=== PATIENT | female | born 1940 | race Caucasian/White ===

== ENCOUNTER → 2017-11-04 | Outpatient (CLI) | payer SELFPAY ==
[~2017-11-04] MED LIST: ACET-24 PO; ASPI-391 PO; ASPI-461 PO; ATV/1 PO; CALC-354 PO; CLR10 PO; GINK60TA2 PO; GLUCTAB18 PO; MULT-506 PO; NAPR1TAB9 PO; PRM625 PO; PROB1CAP41; PSEU120T21 PO; ULT50X PO; VALA500T60 PO
== END | disposition home or self-care (01) ==
LOC: C.LAB 07:35
PROVIDERS: ATTEND Family Medicine

== ENCOUNTER → 2017-11-09 | Outpatient (CLI) | payer OTHER ==
--- NOTE | 2017-11-09 13:24 | DIAGNOSTIC IMAGING REPORT ---
R VENOUS DOPP LOWER EXT UNILAT HISTORY: 77 years-old Female RIGHT LEG PAIN acute pain and swelling of the right leg COMPARISON: Right knee radiographs 09/04/2017 TECHNIQUE: Multiple real-time sonographic images of the right lower extremity deep venous structures were obtained assessing grayscale appearance, color and spectral flow FINDINGS: There is normal flow, compressibility, phasicity and augmentation of the right lower extremity deep venous structures. Mildly complex cyst, 2.2 x 6.1 x 2.0 cm. IMPRESSION: No sonographic evidence of deep venous thrombosis. The above report was generated using voice recognition software. It may contain grammatical, syntax or spelling errors. Electronically signed by: Gen Lin M.D. 11/09/2017 1:22 PM Dictated Date/Time: 11/09/2017 1:19 PM
== END | disposition home or self-care (01) ==
LOC: C.ULTRBC 12:56
PROVIDERS: ATTEND Orthopaedic Surgery Sports Medicine
DX: M79.661 Pain in right lower leg (principal); Z96.651 Presence of right artificial knee joint

== ENCOUNTER 2019-05-04 08:47 | Observation (INO) ==
--- NOTE | 2019-04-01 15:35 | PAT Medication Instructions ---
Medication Instructions Date of Service April 01, 2019 Home Medications aspirin 81 mg PO DAILY PRN 03/04/18 [History Confirmed 03/28/19] rkxetox-jyputrhmlddkq-pskzzcya [Excedrin Extra Strength] 1 tab PO Q6H PRN conjugated estrogens [Premarin] 0.625 mg PO Q2D 03/04/18 [History Confirmed 03/28/19] glutamine [L-Glutamine] 500 mg PO QPM 03/04/18 [History Confirmed 03/28/19] lactobacillus combination no.4 [Probiotic] 1 dose PO QPM 03/04/18 [History Confirmed 03/28/19] lorazepam [Ativan] 0.5 mg PO HS 03/04/18 [History Confirmed 03/28/19] multivitamin 1 tab PO BID 03/04/18 [History Confirmed 03/28/19] naproxen sodium 220 mg PO BID 03/04/18 [History Confirmed 03/28/19] pseudoephedrine-guaifenesin [Mucinex D] 1 tab PO QAM 03/04/18 [History Confirmed 03/28/19] valacyclovir [Valtrex] 1 - 3 tab PO DAILY PRN 03/04/18 [History Confirmed 03/28/19] ascorbic acid (vitamin C) [Vitamin C] 500 mg PO DAILY PRN 03/28/19 [History Confirmed 03/28/19] magnesium oxide 500 mg PO QPM 03/28/19 [History Confirmed 03/28/19] Continue as directed valacyclovir [Valtrex] 1 - 3 tab PO DAILY PRN (if needed) ASK your surgeon for instructions fkxuctq-vesxmsbkmwqpy-ktnozhdu [Excedrin Extra Strength] 1 tab PO Q6H PRN naproxen sodium 220 mg PO BID 03/04/18 [History Confirmed 03/28/19] aspirin 81 mg PO DAILY PRN 03/04/18 [History Confirmed 03/28/19] conjugated estrogens [Premarin] 0.625 mg PO Q2D 03/04/18 [History Confirmed 03/28/19] STOP taking 2 weeks before surgery (or as soon as possible if surgery is within 2 weeks) glutamine [L-Glutamine] 500 mg PO QPM 03/04/18 [History Confirmed 03/28/19] DO NOT take the morning of surgery multivitamin 1 tab PO BID 03/04/18 [History Confirmed 03/28/19] pseudoephedrine-guaifenesin [Mucinex D] 1 tab PO QAM 03/04/18 [History Confirmed 03/28/19] ascorbic acid (vitamin C) [Vitamin C] 500 mg PO DAILY PRN 03/28/19 [History Confirmed 03/28/19] Take evening before surgery lactobacillus combination no.4 [Probiotic] 1 dose PO QPM 03/04/18 [History Confirmed 03/28/19] lorazepam [Ativan] 0.5 mg PO HS 03/04/18 [History Confirmed 03/28/19] multivitamin 1 tab PO BID 03/04/18 [History Confirmed 03/28/19] ascorbic acid (vitamin C) [Vitamin C] 500 mg PO DAILY PRN (if needed) magnesium oxide 500 mg PO QPM 03/28/19 [History Confirmed 03/28/19] Other Notes If you have any questions please call us at [phone] or [phone] or [phone] or [phone]
--- NOTE | 2019-04-04 11:17 | Anesthesiology Consultation ---
Date of Service April 04, 2019 Assessment & Plan (1) Encounter for pre-operative examination: Chart Review Chart Review: Pending: Refer to Additional Notes / Consult section (awaiting PAT results) History Surgery Operation Date: 05/04/19 10:55 Proposed Procedures p Left Total Knee Arthroplasty - Saúl Grijalva MD Height/Weight Height: 5 ft 4 in Weight: 61.235 kg Allergies Allergy/AdvReac Type Severity Reaction Status Date / Time bee venom protein (honey bee) Allergy Unknown ANAPHYLAXIS Verified 03/28/19 15:34 Iodinated Contrast Media Allergy Unknown ANAPHYLAXIS Verified 03/28/19 15:34 metronidazole [From Flagyl] Allergy Unknown itching Verified 03/28/19 15:34 iron AdvReac Unknown diarrhea Verified 03/28/19 15:34 Medications Home Medications Medication Instructions Recorded Confirmed Last Taken aspirin 81 mg PO DAILY PRN 03/04/18 03/28/19 Unknown pesxrum-roduqteluyluy-bzglfaik 1 tab PO Q6H PRN 03/04/18 03/28/19 Unknown [Excedrin Extra Strength] conjugated estrogens [Premarin] 0.625 mg PO Q2D 03/04/18 03/28/19 Unknown glutamine [L-Glutamine] 500 mg PO QPM 03/04/18 03/28/19 Unknown lactobacillus combination no.4 1 dose PO QPM 03/04/18 03/28/19 Unknown [Probiotic] lorazepam [Ativan] 0.5 mg PO HS 03/04/18 03/28/19 Unknown multivitamin 1 tab PO BID 03/04/18 03/28/19 Unknown naproxen sodium 220 mg PO BID 03/04/18 03/28/19 Unknown pseudoephedrine-guaifenesin 1 tab PO QAM 03/04/18 03/28/19 Unknown [Mucinex D] valacyclovir [Valtrex] 1 - 3 tab PO DAILY PRN 03/04/18 03/28/19 Unknown ascorbic acid (vitamin C) [Vitamin 500 mg PO DAILY PRN 03/28/19 03/28/19 Unknown C] magnesium oxide 500 mg PO QPM 03/28/19 03/28/19 Unknown Past Medical History Medical History Adverse anesthesia outcome became very ill after last knee surgery and canceled subsequent surgery d/t fear of becoming ill again, also post-op pain control management difficulties Arrhythmia no noted hx a.fib/a.flutter/arrhythmia per chart review- no further details per patient History of cervical cancer LBBB (left bundle branch block) chronic Left knee DJD Neuropathy left foot/toes Osteoarthritis Exercise / Class Metabolic Activity II 4-5 Yardwork/Stairs/Walk up hill Past Surgical History Surgical History History of appendectomy History of bilateral breast reduction surgery History of bilateral tubal ligation History of breast biopsy History of cardiac cath 10+ YEARS AGO= NO STENTS; LESLIE History of colonoscopy History of esophagogastroduodenoscopy (EGD) History of hysterectomy including cervix History of sinus surgery History of tonsillectomy History of tooth extraction History of total knee replacement Right TKA: SAB x1 at L3/L4 + PNB at [facility] Nausea and vomiting after administration of anesthetic agent Status post right knee replacement Social History Smoking Status: Former smoker tobacco type: cigarettes Do You Dip or Chew Tobacco: No Smoking End Date: 1979 Hx Alcohol Use: Yes Alcohol type: wine alcohol intake frequency: holidays/special occasions only Hx Substance Use: No substance use type: does not use Physical Exam ENMT Mouth: no dentition abnormality Thyromental Distance: > or= 3.5 Finger Breadths Mallampati Class: I Neck normal visual inspection Respiratory normal respiratory effort Auscultation: lungs clear to auscultation bilaterally Cardiovascular Rate/Rhythm: regular rate and regular rhythm
--- NOTE | 2019-04-04 11:57 | XRay Report ---
XR chest Pre-admission PA/Lat CLINICAL HISTORY: 78 years-old Female presenting with preoperative assessment. TECHNIQUE: PA and lateral views of the chest were obtained. COMPARISON: 07/02/2017. FINDINGS: Cardiomediastinal silhouette normal. Lungs and pleural spaces clear. Osseous structures normal. Upper abdomen normal. IMPRESSION: 1. No acute cardiopulmonary disease. ACT 112: Negative or not required by law. Electronically signed by: Jerry Abdi M.D. 04/04/2019 11:56 AM
[2019-04-04 12:35] LABS: Basophils # (auto) 0.07 K/uL (0-0.2); Basophils % (auto) 1.5 %; Eosinophils # (auto) 0.16 K/uL (0-0.5); Eosinophils % (auto) 3.5 %; Hematocrit (blood only) 43.1 % (37-47); Hemoglobin 14.4 g/dL (12.0-16.0); Lymphocytes # (auto) 1.14 K/uL (1.2-3.4); Lymphocytes % (auto) 24.8 %; Mean Corpuscular Hemoglobin 32.9 pg (25-34); Mean Corpuscular Hgb Conc 33.4 g/dL (32-36); Mean Corpuscular Volume 98.4 fL (80-100); Mean Platelet Volume 9.9 fL (7.4-10.4); Monocytes # (auto) 0.38 K/uL (0.11-0.59); Monocytes % (auto) 8.3 %; Neutrophils # (auto) 2.84 K/uL (1.4-6.5); Neutrophils % (auto) 61.9 %; Platelet Count 204 K/uL (130-400); RDW Coefficient of Variation 13.2 % (11.5-14.5); RDW Standard Deviation 47.5 fL (36.4-46.3); Red Blood Count 4.38 M/uL (4.2-5.4); White Blood Count 4.59 K/uL (4.8-10.8)
[2019-04-04 12:44] LABS: Partial Thromboplastin Ratio 0.9; Partial Thromboplastin Time 24.6 Seconds (21.0-31.0); Prothrombin Time 10.5 Seconds (9.0-12.0)
[2019-04-04 12:59] LABS: Blood Urea Nitrogen 13 mg/dl (7-18); Calcium 8.8 mg/dl (8.5-10.1); Carbon Dioxide 29 mmol/L (21-32); Chloride 107 mmol/L (98-107); Creatinine Clr Calc Pharmacy 60.8 ml/min; Est GFR (African American) 98.5; Glucose 87 mg/dl (70-99); Potassium 3.9 mmol/L (3.5-5.1); Sodium 140 mmol/L (136-145)
[2019-04-04 13:03] LABS: C Reactive Protein < 0.29 mg/dl (0-0.29)
--- NOTE | 2019-04-04 16:06 | Electrocardiogram Report ---
Test Reason : Blood Pressure : / mmHG Vent. Rate : 074 BPM Atrial Rate : 074 BPM P-R Int : 156 ms QRS Dur : 128 ms QT Int : 424 ms P-R-T Axes : 044 -84 040 degrees QTc Int : 470 ms Normal sinus rhythm Left axis deviation Non-specific intra-ventricular conduction block Abnormal ECG When compared with ECG of 02-JUL-2017 15:05, No significant change was found Confirmed by Travon Alexandre ([id number]) on 04/04/2019 4:06:28 PM Referred By: Saúl Grijalva Confirmed By:rTavon Alexandre
[~2019-05-04 08:47] MED LIST changes: -ACET-24 PO; +ACETAMINOPHEN 500 MG TAB PO SCH; -ASPI-391 PO; -ASPI-461 PO; -ATV/1 PO; +BUPIVACAINE 0.5 % 5 MG/1 ML PF 10ML VIAL ONE; +BUPIVACAINE LIPOSOME/PF 266 MG, BUPIVACAINE/EPINEPHRINE 50 ML, SODIUM CHLORIDE 0.9% 30 ... INFIL SCH; +BUPIVACAINE/EPINEPHRINE 0.25% 1:200,000 30 ML VIAL ONE; -CALC-354 PO; +CEFAZOLIN 2000MG 2,000 MG/15 ML SYR IV SCH; -CLR10 PO; +FAMOTIDINE 20 MG TAB PO SCH; +GABAPENTIN 300 MG CAP PO SCH; -GINK60TA2 PO; -GLUCTAB18 PO; +LR 500ML BOLUS, THEN 15ML/HR IV SCH; +LR 60ML/HR IV SCH; +METOCLOPRAMIDE HCL 10 MG TABLET PO SCH; -MULT-506 PO; -NAPR1TAB9 PO; -PRM625 PO; -PROB1CAP41; -PSEU120T21 PO; +TRANEXAMIC ACID 1,000 MG **IV Intra-op IV SCH; -ULT50X PO; -VALA500T60 PO
[2019-05-04] MEDS ORDERED: LIDOCAINE HCL 2% 2 ML VIAL/AMP(20MG/ML) INFIL ONE (09:27)
[2019-05-04] MEDS ORDERED: MIDAZOLAM HCL 1 MG/ML 2ML VIAL ONE (09:27)
[2019-05-04] MEDS ORDERED: PROPOFOL IV EMULSION 10 MG/ML 20 ML VIAL IV ONE ×2 (09:27→12:32)
[2019-05-04] MEDS ORDERED: ATROPINE SULFATE 0.1 MG/ML 10ML SYR IV PRN (10:07)
[2019-05-04] MEDS ORDERED: fentaNYL citrate 100 MCG/2 ML VIAL IV PRN (10:07)
[2019-05-04] MEDS ORDERED: ePHEDrine sulfate 50 MG/ML AMP IV PRN (10:07)
[2019-05-04] MEDS ORDERED: ONDANSETRON INJ 2 MG/ML 2 ML VIAL IV PRN ×2 (10:07→14:26)
[2019-05-04] MEDS ORDERED: HYDROmorphone INJ 2 MG/ML SYR/VIAL IV PRN (10:07)
--- NOTE | 2019-05-04 10:58 | History & Physical Bridge Note ---
Date of Service May 04, 2019 History & Physical Bridge Note I have examined the patient, reviewed the History & Physical and in the interval since the performance of the History & Physical I have noted the following changes of clinical significance: no changes noted
[2019-05-04] MEDS ORDERED: SODIUM CHLORIDE 0.9% PF 50 ML VIAL ONE (11:02)
[2019-05-04] MEDS ORDERED: BUPIVACAINE/EPINEPHRINE 0.25% 1:200,000 30 ML VIAL ONE (11:02)
[2019-05-04] MEDS ORDERED: BUPIVACAINE LIPOSOME 1.3% 266 MG/20 ML VIAL ONE (11:03)
[2019-05-04] MEDS ORDERED: BACITRACIN INJ 50,000 UNIT VIAL ONE (11:03)
[2019-05-04] MEDS ORDERED: ONDANSETRON INJ 2 MG/ML 2 ML VIAL ONE (12:08)
--- NOTE | 2019-05-04 13:00 | Post Operative Brief Note ---
PG Immediate Post Op with CF Date of Surgery May 04, 2019 Pre & Post Diagnosis Operation Date: 05/04/19 10:40 Pre-Op Diagnosis: Left Knee Advanced Degenerative Joint Disease Post-Op Diagnosis: Left Knee Advanced Degenerative Joint Disease I identified the patient and participated in the time-out.: Yes Procedure Operation Date: 05/04/19 10:40 Actual Procedures p Left Total Knee Arthroplasty(Left) - Saúl Grijalva MD Surgeon Saúl Grijalva MD Manager Winter Antonio, PAC Estimated Blood Loss 50 Findings Consistent with Post-Op Diagnosis Fluids 1300 cc Specimens Specimen Description: A. Left Knee Bone and Tissue Drains Barboza Catheter (A 16 Slovak barboza catheter was inserted by DAWSON Coker, without difficulty, clear yellow urine obtained, output to be monitored by Anesthesia.) Anesthesia Type Spinal MAC Complications none Disposition Accompanied Patient To Recovery: No Disposition: Recovery Room
--- NOTE | 2019-05-04 13:13 | Operative Report ---
Post Operative Report Pre & Post Diagnosis Operation Date: 05/04/19 10:40 Pre-Op Diagnosis: Left Knee Advanced Degenerative Joint Disease Post-Op Diagnosis: Left Knee Advanced Degenerative Joint Disease I identified the patient and participated in the time-out.: Yes Procedure Operation Date: 05/04/19 10:40 Actual Procedures p Left Total Knee Arthroplasty(Left) - Saúl Grijalva MD Surgeon Saúl Grijalva MD Nursery Nurse Antonio, PAC Estimated Blood Loss 50 Findings Consistent with Post-Op Diagnosis Operative findings revealed advanced left knee lateral compartment DJD. She had grade 4 chondrosis and eburnation of the lateral femoral condyle lateral tibial plateau. She had a valgus deformity to her knee. The medial compartment was fairly well-preserved. She did have some grade 3 and grade 4 changes in the patellofemoral compartment mostly on the patella. Fluids 1300 cc. Specimens Left knee sent for pathology. Drains None. Anesthesia Type Spinal MAC Complications none Disposition Disposition: Recovery Room Indications Patient is a 78-year-old female is had a long history of bilateral knee pain discomfort. She underwent a right knee replacement just about 2 years ago and is done pretty well from this. She continues to be bothered by left knee pain discomfort. She failed conservative care. X-rays reveal advanced lateral compartment DJD. She elected proceed with surgical treatment/knee replacement. Description of Procedure Operative implants consisted of: 1. Biomet Vanguard size 60 left posterior box femoral component. 2. Biomet size 67 tibial tray. 3. 10 mm posterior box polyethylene insert. 4. 28 x 8 all poly-patella. Patient was taken to the operating identified and placed on the operating table supine position protectors were properly padded. IV antibiotics arrived by anesthesia team for spinal anesthetic and abductor canal block had been provided in the holding area. Gómez catheter was placed in sterile fashion. A left thigh tract was then placed in the left lower extremities and prepped and draped in usual sterile fashion. Left leg was elevated and exsanguinated with use of an Esmarch and turns placed at 3 mmHg. An anterior approach to the left knee was then performed to longitudinal incision centered over the patella. Sharp dissection was carried through subcutaneous tissue down to the level of the extensor mechanism. A medial parapatellar arthrotomy incision was made. Some subperiosteal dissection was carried out medially. The fat pad was resected from each patella tendon. Lateral patellofemoral ligament was released. The patella was subluxated laterally and the knee was flexed. The osteophytes were taken off the distal femur. The ACL and PCL were then released from distal femur the tibia subluxated anteriorly. The external tibial alignment jig was then placed in the interface the tibia and adjusted 12 mm medially. Proximal tibial cut was made to move about 3 to 4 mm of bone from the medial side. The tibia was then sized to a size 67. Attention drawn the femur. The distal femur was then with a sharp drill bit intramedullary canal was suction. A left 5 degree valgus cutting guide was placed. Distal femoral cutting block was pinned in place. Distal femoral cut was made taking additional 3 mm of bone off distal femur. Femur was then sized to a size 60. We did downsize a slightly. The AP cutting block was pinned parallel to the epicondylar axis which was 6 degrees of external rotation. The anterior cut, anterior chamfer, posterior cut, posterior chamfer cuts were made. Box cutting guide was placed and just slightly lateral and the box cut was made. The knee was flexed for the remnants of the medial lateral menisci were excised. The osteophytes were taken off the posterior aspect of the femur. A trial femoral component was placed. The tibial tray was pinned in maximum external rotation and the drill and stem punch were used to create defect in proximal tib-fib tibial tray. Knee was then trialed 10 mm insert fit most appropriately. Attention drawn the patella. The patella was cleaned of all soft tissues. Patella thickness measured 20 mm in thickness was cut down to 12. Was sized to a size 28 patella. Locals were drilled for the 28 patella. Lateral osteophytes removed. Patella button was placed. Knee was taken through range of motion and the patella tracked nicely with no thumbs test. Attention drawn to placing the permanent components. All trial components removed. Bone plug was placed in the distal femur limit blood loss put a double batch Palacos G cement was mixed. But a Biomet Vanguard size 60 left posterior box femoral component, size 67 tibial tray, a 10 mm posterior box polyethylene insert, and a 28 x 8 all poly-patella were then cemented in place. Knees brought out into full extension total cement hardened. Final cement check was then performed. Pericapsular tissues were injected with total of 100 cc of combination of 20 cc of Exparel, 30 cc of normal saline, 50 cc of quarter percent Marcaine with epinephrine. Patient did receive 1 g tranexamic acid per the tourniquet was then let down for turn time 54 minutes. Hemostasis assured use electrocautery. The wounds once again irrigated. Extensor mechanism closed with combination 1 PDS suture #1 Vicryl suture in [id number]-qs-tyldd fashion. The extensor mechanism checked found to be intact and subcutaneous tissue then closed with 2 Dexon suture in buried interrupted fashion and the skin was closed skin isadora. Leg was then cleaned dried a sterile dressing composed of Xeroform, 4 x 4's, sterile cast padding and Tramaine bandage were applied. Patient then transferred to the recovery room in stable condition. Patient tolerated procedure well and there were no complications. I attest to the content of the Intraoperative Record and any orders documented therein. Any exceptions are noted below.
[2019-05-04] MEDS ORDERED: MEPERIDINE HCL 25 MG/ML CARP ONE (13:22)
--- NOTE | 2019-05-04 13:41 | XRay Report ---
XR knee LT 1 or 2V routine CLINICAL HISTORY: 78 years-old Female presenting with Surgical Post Op. TECHNIQUE: Frontal and lateral views of the left knee were obtained. COMPARISON: 04/04/2019. FINDINGS: Postsurgical changes of total right knee arthroplasty with patellar resurfacing. Expected intra-artic ular and soft tissue emphysema. Overlying skin isadora. No malalignment. Radiolucency in the intercon dylar region of the femur likely expected postsurgical change. No unexpected periprosthetic lucency o r periprosthetic fracture. IMPRESSION: Expected postsurgical appearance status post total left knee arthroplasty with patellar resurfacing. ACT 112: Negative or not required by law. Electronically signed by: Jerry Abdi M.D. 05/04/2019 1:40 PM
[2019-05-04] MEDS ORDERED: MEPERIDINE HCL 25 MG/ML CARP IV STA (13:47)
--- NOTE | 2019-05-04 14:14 | Anesthesiology Progress Note ---
Date of Service May 04, 2019 Anesthesia Post Procedure Vital Signs Vital Signs: Temp Pulse Pulse Resp BP BP Pulse Ox 05/04/19 14:10 36.3 C L 73 12 117/51 L 96 05/04/19 14:00 68 13 114/52 L 97 05/04/19 13:50 72 12 108/53 L 96 05/04/19 13:40 77 20 117/54 L 96 05/04/19 13:30 73 12 117/50 L 93 05/04/19 13:20 86 17 113/52 L 96 05/04/19 13:10 79 15 114/51 L 95 05/04/19 13:04 36.6 C 85 12 112/54 L 94 05/04/19 09:18 36.4 C L 83 18 130/77 95 Pain Intensity Left Lower Back: Pain Intensity: 4 Transfer of Care Handoff Completed per policy Notes Mental Status: alert / awake / arousable Patient Amnestic to Procedure: Yes Nausea / Vomiting: adequately controlled Pain: adequately controlled Airway Patency, RR, SpO2: stable & adequate BP & HR: stable & adequate Hydration State: stable & adequate Neuraxial Anesthesia: was administered and sensory block is resolving Anesthetic Complications: no major complications apparent
[2019-05-04] MEDS ORDERED: HYDROmorphone INJ 0.5 MG/0.5 ML SYR IV PRN (14:26)
[2019-05-04] MEDS ORDERED: NALOXONE HCL 0.4 MG/1 ML VIAL/CARP IV PRN (14:26)
[2019-05-04] MEDS ORDERED: SODIUM CHLORIDE 0.9% 1000ML 1,000 ML IV SCH (14:26)
[2019-05-04] MEDS ORDERED: bisacodyL 10 MG SUPP PR PRN (14:26)
[2019-05-04] MEDS ORDERED: METOCLOPRAMIDE HCL INJ 5 MG/ML 2 ML VIAL IV PRN (14:26)
[2019-05-04] MEDS ORDERED: ASCORBIC ACID 500 MG TAB PO PRN (14:26)
[2019-05-04] MEDS ORDERED: MAGNESIUM HYDROXIDE SUSP 30 ML UDC PO PRN (14:26)
[2019-05-04] MEDS ORDERED: ALUMINUM/MAGNESIUM SUSP 30 ML UDC PO PRN (14:26)
[2019-05-04] MEDS: KETOROLAC TROMETHAMINE 15 MG/ML VIAL IV SCH ×2 (15:56→22:07)
[2019-05-04] MEDS: ACETAMINOPHEN 500 MG TAB PO SCH ×2 (15:57→22:07)
[2019-05-04] MEDS: FERROUS GLUCONATE 324 MG TAB PO SCH (17:52)
[2019-05-04] MEDS ORDERED: Nursing to Pharmacy Communication ONE (17:55)
[2019-05-04] MEDS ORDERED: TRANEXAMIC ACID / 0.7% NACL 1,000 MG/100 ML BAG IV SCH (19:03)
[2019-05-04] MEDS: CEFAZOLIN 1000MG 1,000 MG/7.5 ML SYR IV SCH (19:21)
[2019-05-04] MEDS: DOCUSATE SODIUM 100 MG CAP PO SCH (20:52)
[2019-05-04] MEDS: OXYCODONE HCL IR 5 MG TAB (IMMEDIATE RELEASE) PO PRN (20:52)
[2019-05-04] MEDS: LACTOBACILLUS ACIDOPHILUS (FLORANEX) TAB PO SCH (20:53)
[2019-05-04] MEDS: ASPIRIN 81 MG ECTAB PO SCH (20:53)
[2019-05-04] MEDS: SENNA 8.6 MG TAB PO SCH (20:53)
[2019-05-04] MEDS: MULTIVITAMIN TAB PO SCH (20:53)
[2019-05-04] MEDS: TAPENTADOL HCL ER 50 MG TABCR PO SCH (20:55)
[2019-05-04] MEDS: LORazepam 0.5 MG TAB PO SCH (20:55)
[2019-05-05] MEDS: KETOROLAC TROMETHAMINE 15 MG/ML VIAL IV SCH ×5 (03:00→22:32)
[2019-05-05] MEDS: CEFAZOLIN 1000MG 1,000 MG/7.5 ML SYR IV SCH (03:00)
[2019-05-05] MEDS: ACETAMINOPHEN 500 MG TAB PO SCH ×3 (05:19→21:00)
[2019-05-05 06:10] LABS: Hemoglobin 12.8 g/dL (12.0-16.0); Mean Corpuscular Hemoglobin 32.7 pg (25-34); Mean Corpuscular Hgb Conc 33.7 g/dL (32-36); Mean Corpuscular Volume 97.2 fL (80-100); Mean Platelet Volume 9.3 fL (7.4-10.4); Platelet Count 182 K/uL (130-400); RDW Coefficient of Variation 13.3 % (11.5-14.5); RDW Standard Deviation 46.7 fL (36.4-46.3); Red Blood Count 3.91 M/uL (4.2-5.4); White Blood Count 6.67 K/uL (4.8-10.8)
[2019-05-05 06:44] LABS: BUN Creatinine Ratio 16.8 (10-20); Calcium 8.3 mg/dl (8.5-10.1); Creatinine Clr Calc Pharmacy 55.2 ml/min; Est GFR (African American) 88.3; Est GFR (Non-African American) 76.2; Potassium 3.9 mmol/L (3.5-5.1)
--- NOTE | 2019-05-05 07:20 | Orthopedic Progress Note ---
Date of Service May 05, 2019 Assessment & Plan (1) History of total left knee replacement: She was seen and examined by Dr. Grijalva. Pain is controlled. Continue PT/OT. DVT prophylaxis. Discharge planning. Subjective POD #1 from Left TKA. Doing pretty well. Not really having pain yet at this point. No new complaints. Physical Exam Physical Exam: alert and oriented. NAD. Dressing clean, dry, intact to left leg. NVI. Able to DF, PF appropriately. Results & Data ([facility]) Vital Signs (Past 12 Hours) Vital Signs Temp Pulse Resp BP Pulse Ox 05/05/19 07:08 36.9 C 71 17 147/70 H 96 05/05/19 02:57 36.8 C 71 16 126/70 94 05/04/19 22:52 36.7 C 72 16 136/71 95 05/04/19 20:16 36.7 C 68 18 119/75 94 PG Care Time/CCT Total # of Minutes Spent Total Time Spent with Patient: Total time spent is greater than 50% in coordination of care (as documented) at patient's floor/unit and/or counseling patient: Coding Level of Care Code None Diagnoses History of total left knee replacement Z96.652
[2019-05-05] MEDS: FERROUS GLUCONATE 324 MG TAB PO SCH ×2 (07:51→15:25)
[2019-05-05] MEDS ORDERED: dexAMETHasone 4 MG TAB PO SCH (08:00)
[2019-05-05] MEDS: MULTIVITAMIN TAB PO SCH ×2 (08:59→20:55)
[2019-05-05] MEDS: TAPENTADOL HCL ER 50 MG TABCR PO SCH ×2 (08:59→20:55)
[2019-05-05] MEDS: ASPIRIN 81 MG ECTAB PO SCH ×2 (08:59→20:56)
[2019-05-05] MEDS: guaiFENesin 600 MG TABCR PO SCH (08:59)
[2019-05-05] MEDS: DOCUSATE SODIUM 100 MG CAP PO SCH ×2 (09:00→20:55)
[2019-05-05] MEDS ORDERED: MULTIVITAMIN TAB PO SCH (09:00)
--- NOTE | 2019-05-05 09:53 | Anesthesiology Progress Note ---
Date of Service May 05, 2019 Anesthesia Post Procedure Vital Signs Vital Signs: Temp Pulse Pulse Resp BP Pulse Ox 05/05/19 07:08 36.9 C 71 17 147/70 H 96 05/05/19 02:57 36.8 C 71 16 126/70 94 05/04/19 22:52 36.7 C 72 16 136/71 95 05/04/19 20:16 36.7 C 68 18 119/75 94 05/04/19 17:34 36.6 C 74 16 124/76 96 05/04/19 16:25 36.4 C L 71 14 126/74 100 05/04/19 15:55 18 100 05/04/19 15:32 36.0 C L 74 16 114/70 99 05/04/19 14:56 36.8 C 69 18 107/66 97 05/04/19 14:25 36.4 C L 78 18 100/58 L 98 05/04/19 14:10 36.3 C L 73 12 117/51 L 96 05/04/19 14:00 68 13 114/52 L 97 05/04/19 13:50 72 12 108/53 L 96 05/04/19 13:40 77 20 117/54 L 96 05/04/19 13:30 73 12 117/50 L 93 05/04/19 13:20 86 17 113/52 L 96 05/04/19 13:10 79 15 114/51 L 95 05/04/19 13:04 36.6 C 85 12 112/54 L 94 Pain Intensity Left Lower Back: Pain Intensity: 4 Notes Mental Status: alert / awake / arousable and participated in evaluation Patient Amnestic to Procedure: Yes Nausea / Vomiting: adequately controlled Pain: adequately controlled Airway Patency, RR, SpO2: stable & adequate BP & HR: stable & adequate Hydration State: stable & adequate Neuraxial Anesthesia: was administered and sensory block resolved Anesthetic Complications: no major complications apparent and Pt Satisfied with anesthetic care
[2019-05-05] MEDS: OXYCODONE HCL IR 5 MG TAB (IMMEDIATE RELEASE) PO PRN (11:05)
[2019-05-05] MEDS: LORazepam 0.5 MG TAB PO SCH (20:56)
[2019-05-05] MEDS: SENNA 8.6 MG TAB PO SCH (20:56)
[2019-05-05] MEDS: LACTOBACILLUS ACIDOPHILUS (FLORANEX) TAB PO SCH (20:56)
[2019-05-06] MEDS: KETOROLAC TROMETHAMINE 15 MG/ML VIAL IV SCH ×2 (04:59→09:34)
[2019-05-06] MEDS: ACETAMINOPHEN 500 MG TAB PO SCH (05:00)
[2019-05-06] MEDS: OXYCODONE HCL IR 5 MG TAB (IMMEDIATE RELEASE) PO PRN (07:52)
[2019-05-06] MEDS: FERROUS GLUCONATE 324 MG TAB PO SCH (07:52)
[2019-05-06] MEDS: DOCUSATE SODIUM 100 MG CAP PO SCH (07:53)
[2019-05-06] MEDS: ASPIRIN 81 MG ECTAB PO SCH (07:53)
[2019-05-06] MEDS: guaiFENesin 600 MG TABCR PO SCH (07:53)
[2019-05-06] MEDS: MULTIVITAMIN TAB PO SCH (07:53)
[2019-05-06] MEDS: TAPENTADOL HCL ER 50 MG TABCR PO SCH (07:56)
--- NOTE | 2019-05-06 08:06 | Progress Note ---
DATE: 05/06/2019 SUBJECTIVE: A 78-year-old white female postop day 2 from left knee replacement. She is doing pretty well. Pain is controlled. Little bit of nausea with the medicine. No chest pain or shortness of breath. Not feeling dizzy or lightheaded. OBJECTIVE: VITAL SIGNS: Temperature 36.6. Vital signs stable. GENERAL: Shows a pleasant, middle-aged female. She is sitting in bed, looks comfortable. EXTREMITIES: Examination of the left leg reveals the leg to be well aligned. Dressing is clean, dry and intact. She can dorsiflex and plantarflex her foot appropriately. She is neurologically intact. ASSESSMENT: A 78-year-old white female postop day 2 from a left knee replacement, doing well. Pain is controlled. She is neurologically intact. Little bit of nausea, which seems to respond to the Zofran. PLAN: 1. DVT prophylaxis including thigh-high TEDs, SCDs, and aspirin twice a day. 2. PT/OT. Weight bear as tolerated. Left total knee protocol. 3. Pain control, doing well with current pain regimen. 4. Disposition: Plan to discharge to home with some home health later today.
--- NOTE | 2019-05-09 14:45 | Discharge Summary ---
ADMITTING PHYSICIAN AND SURGEON: Dr. Saúl Grijalva. ADMITTING DIAGNOSIS: Left knee degenerative joint disease. SURGERY PERFORMED: Left total knee arthroplasty. SECONDARY DIAGNOSES: Irregular heartbeat, low back pain, sciatica. CONSULTS: None obtained. HISTORY AND PHYSICAL EXAMINATION: Well documented in the patient's chart. HOSPITAL COURSE: The patient was admitted on 05/04/2019 underwent total knee arthroplasty, tolerated the procedure well. There were no complications. She was transferred to the PACU postoperatively and later to the orthopedic floor for further care. She was given Ancef for antibiotic prophylaxis, ELVIA stockings, SCDs and aspirin for DVT prophylaxis. Hemoglobin, hematocrit and vital signs were monitored during her hospital stay and remained stable, did not require any blood transfusions. There were no complications. By postoperative day 2, she was tolerating a regular diet, pain was controlled with oral pain medicine. She was participating in physical therapy. Postop day 2, she was discharged home, set up with home health services, given printed discharge instructions as well as new prescriptions for extra strength Tylenol, aspirin, Zofran and oxycodone. Continue home medications, continue physical therapy, weightbearing as tolerated, ELVIA stockings. Follow up approximately 2 weeks or sooner if there are any problems or concerns.
== END 2019-05-06 10:47 | disposition home health service (06) ==
LOC: 3E 08:47 → ASU 08:47